=== PATIENT | male | born 1970 | race Caucasian/White ===

== ENCOUNTER 2018-04-04 22:40 | Outpatient (CLI) | payer MEDICAID | END 2018-04-04 22:41 | disposition critical access hospital (66) | LOC: EMS 22:40 | PROVIDERS: ATTEND Surgery | DX: R46.4 Slowness and poor responsiveness (principal) | CPT/HCPCS: A0425; A0427; A0999 ==

== ENCOUNTER 2018-04-04 22:57 | Emergency (ER) | payer MEDICAID ==
--- NOTE | 2018-04-04 23:09 | ED Physician Documentation ---
PD HPI ALTERED MENTAL STATUS - Stated complaint Stated Complaint: OD - History obtained from History obtained from: Patient, Friend (girlfriend (lives with patient)), EMS - History of Present Illness Timing - onset: Unknown Quality / character: Unresponsive Basline status: Alert and oriented X 3, Ambulatory, Independent Treatment ASS[employer]: Narcan Similar symptoms before: Has not had sx before Recently seen: Not recently seen - Additional information Additional information: BIBChristoph, friend called 911 for unresponsiveness. Patient was unconscious and not breathing and friend called 911. Friend is not in ED and thus unable to get specifics from what they witnessed. Medics arrived to find patient unconscious and unresponsive, hypopneic but had pulses and was breathing spontaneously albeit shallow breaths. CPR had apparently been performed by friend prior to EMS arrival. IV established and given 0.4 mg narcan with improvement in level of consciousness and spontaneous respirations, which then significantly improved with a second dose of 0.4mg narcan IV. Patient admits to injecting methamphetamines with heroin tonight; he says he has never used heroin before. Patient's only c/o is midline chest pain Review of Systems Cardiac: reports: Chest pain / pressure. denies: Palpitations Respiratory: reports: Reviewed and negative GI: reports: Reviewed and negative Musculoskeletal: denies: Neck pain, Back pain, Extremity pain Neurologic: reports: Unresponsive (resolved with narcan given IV by medics). denies: Generalized weakness, Focal weakness, Numbness, Headache PD PAST MEDICAL HISTORY - Past Medical History Past Medical History: No - Past Surgical History Past Surgical History: No - Present Medications Home Medications: Ambulatory Orders Medication Instructions Recorded Confirmed Dextroamphetamine/Amphetamine 30 mg PO DAILY 04/04/18 04/04/18 [Adderall 30 mg Tablet] - Allergies Allergies/Adverse Reactions: Allergies Allergy/AdvReac Type Severity Reaction Status Date / Time No Known Drug Allergies Allergy Verified 04/04/18 23:09 - Living Situation Living Situation: reports: With spouse/s.o. (lives with girlfriend) Living Arrangement: reports: At home PD ED PE NORMAL - Vitals Vital signs reviewed: Yes - General General: Alert and oriented X 3, No acute distress, Well developed/nourished, Other (drowsy but awakens to verbal stimulation, repeatedly and rapidly falls asleep during H+P) - HEENT HEENT: Atraumatic, PERRL, EOMI, Moist mucous membranes - Neck Neck: No bony TTP - Cardiac Cardiac: RRR, No murmur, No gallop, No rub - Respiratory Respiratory: No respiratory distress, Clear bilaterally - Abdomen Abdomen: Soft, Non tender - Back Back: No spinal TTP - Derm Derm: Normal color, Warm and dry - Extremities Extremities: No tenderness to palpate, Normal ROM s pain, No edema, Other (LUE antecubital fossa/proximal FA: linear echymosis with firmness and scarring c/w track jael (patient indicates this is where he injected tonight and that he has injected previously at this site (methamphetamines)). nontender, no erythema, fluctuance, or discharge) - Neuro Neuro: Alert and oriented X 3 Eye Opening: To Voice Motor: Obeys Commands Verbal: Oriented GCS Score: 14 PD ED PE EXPANDED - Visual Whole body visual: 1 - tenderness (tenderness and erythema) Results - Vitals Vitals: Vital Signs - 24 hr 04/05/18 04/05/18 06:19 06:45 Heart Rate 66 68 Respiratory 17 16 Rate Blood Pressure 127/85 H 119/92 H O2 Saturation 96 97 Oxygen O2 Source Room air - Labs Labs: Laboratory Tests 04/04/18 04/04/18 04/04/18 00:45 00:45 00:45 WBC 9.1 RBC 4.68 L Hgb 14.7 Hct 43.0 MCV 91.9 MCH 31.5 H MCHC 34.3 RDW 12.5 Plt Count 253 MPV 6.9 L Neut # (Auto) 7.2 H Lymph # (Auto) 1.4 L [place] # (Auto) 0.4 Eos # (Auto) 0.1 Baso # (Auto) 0.1 Absolute Nucleated RBC 0.00 Nucleated RBC % 0.0 Sodium 138 Potassium 3.8 Chloride 105 Carbon Dioxide 26 Anion Gap 7.0 BUN 14 Creatinine 1.2 Estimated GFR (MDRD) 65 L Glucose 130 H Calcium 8.1 L Total Bilirubin 1.3 H AST 26 ALT 24 Alkaline Phosphatase 86 Troponin I < 0.04 Total Protein 6.7 Albumin 3.8 Globulin 2.9 Albumin/Globulin Ratio 1.3 Lipase 25 - Rads (name of study) CT head Radiology: Prelim report reviewed, See rad report chest xray Radiology: Prelim report reviewed, See rad report PD MEDICAL DECISION MAKING - ED course Complexity details: reviewed results, re-evaluated patient, considered differential, d/w patient ED course: episodes of hypoxia early in ED stay which correlated with hypopnea. Patient's chest pain resolved with IV toradol. Patient gradually became more awake and alert during ED stay and was AAOx3 prior to discharge. He was calm and cooperative during ED stay. Departure - Departure Disposition: Home, Self Care Clinical Impression: Heroin overdose Qualifiers: Encounter type: initial encounter Injury intent: accidental or unintentional Qualified Code(s): T40.1X1A - Poisoning by heroin, accidental (unintentional), initial encounter Condition: Good Instructions: ED Narcotic Abuse, ED Overdose Accidental, ED Overdose Opiate Follow-Up: [facility] [Provider Group] [facility] [Provider Group] Discharge Date/Time: 04/05/18 06:47
[2018-04-04] MEDS ORDERED: KETOROLAC 60 MG/2 ML VIAL IVP STA (23:23)
[2018-04-04] MEDS ORDERED: SODIUM CHLORIDE 0.9% 1,000 ML IV STA ×2 (23:23→23:29)
[2018-04-04 23:54] LABS: BASOPHILS # (AUTO) 0.1 10^3/uL (0.0-0.1); BASOPHILS % (AUTO) 0.6 %; EOSINOPHILS # (AUTO) 0.1 10^3/uL (0.0-0.7); EOSINOPHILS % (AUTO) 0.6 %; HGB - HEMOGLOBIN 14.7 g/dL (14.0-18.0); LYMPHOCYTES # (AUTO) 1.4 10^3/uL (1.5-3.5); LYMPHOCYTES % (AUTO) 14.9 %; MEAN CORPUSCULAR HEMOGLOBIN 31.5 pg (27.0-31.0); MEAN CORPUSCULAR HGB CONC 34.3 g/dL (32.0-36.0); MEAN CORPUSCULAR VOLUME 91.9 fL (80.0-94.0); MEAN PLATELET VOLUME 6.9 fL (7.4-11.4); MONOCYTES # (AUTO) 0.4 10^3/uL (0.0-1.0); MONOCYTES % (AUTO) 4.9 %; NEUTROPHILS # (AUTO) 7.2 10^3/uL (1.5-6.6); PLT - PLATELET COUNT 253 10^3/uL (130-450); RED BLOOD COUNT 4.68 10^6/uL (4.70-6.10); RED CELL DISTRIBUTION WIDTH 12.5 % (12.0-15.0); WHITE BLOOD COUNT 9.1 x10^3/uL (4.8-10.8)
[2018-04-05 00:13] LABS: ALBUMIN 3.8 g/dL (3.2-5.5); ALBUMIN/GLOBULIN RATIO 1.3 (1.0-2.2); BILIRUBIN,TOTAL 1.3 mg/dL (0.2-1.0); CALCIUM 8.1 mg/dL (8.5-10.3); CREATININE 1.2 mg/dL (0.6-1.2); TOTAL PROTEIN 6.7 g/dL (6.7-8.2)
--- NOTE | 2018-04-05 00:33 | XRAY Report ---
Reason: chest pain Procedure Date: 04/05/2018 Accession Number: [id number] / [id number] Procedure: XR - Chest 2 View X-Ray CPT Code: 30426 FULL RESULT: EXAM: CHEST RADIOGRAPHY EXAM DATE: 04/05/2018 12:05 AM. CLINICAL HISTORY: Chest pain. COMPARISON: None. TECHNIQUE: 2 views. FINDINGS: Lungs/Pleura: No focal opacities evident. No pleural effusion. No pneumothorax. Normal volumes. Mediastinum: Heart and mediastinal contours are unremarkable. Other: None. IMPRESSION: Normal 2-view chest radiography. [facility]
--- NOTE | 2018-04-05 03:46 | CT Report ---
Reason: AMS, head injury Procedure Date: 04/05/2018 Accession Number: [id number] / [id number] Procedure: CT - Head W/O CPT Code: FULL RESULT: EXAM: CT HEAD EXAM DATE: 04/05/2018 03:38 AM. CLINICAL HISTORY: Altered mental status, head injury. COMPARISON: None. TECHNIQUE: Multiaxial CT images were obtained from the foramen magnum to the vertex. Reformats: Sagittal and coronal. IV contrast: None. In accordance with CT protocol optimization, one or more of the following dose reduction techniques were utilized for this exam: automated exposure control, adjustment of mA and/or KV based on patient size, or use of iterative reconstructive technique. FINDINGS: Parenchyma: No intraparenchymal hemorrhage. No evidence of mass, midline shift, or CT findings of infarction. Lambert-white differentiation is distinct. Extraaxial Spaces: Normal for age. No subdural or epidural collections identified. Ventricles: Normal in size and position. Sinuses and Orbits: Imaged paranasal sinuses, orbits, and mastoids show no significant abnormality with incidental polyps or mucous retention cysts in the right maxillary sinus. Bones: No evidence of fracture or calvarial defect. Other: None. IMPRESSION: Negative head CT. [facility]
[2018-04-05 06:46] VITALS: BP 119/92
== END 2018-04-05 06:47 | disposition home or self-care (01) ==
LOC: EDBD → ED 22:57
DX: T40.1X1A Poisoning by heroin, accidental (unintentional), initial encounter (principal); R07.9 Chest pain, unspecified; R09.02 Hypoxemia
CPT/HCPCS: 36415; 70450; 71046; 80053; 83690; 84484; 85025; 96361; 96374; 99284

== ENCOUNTER 2018-04-20 21:09 | Emergency (ER) | payer MEDICAID ==
[2018-04-20 22:47] VITALS: BP 157/91
== END 2018-04-20 22:54 | disposition left against medical advice (07) ==
LOC: ED 21:09
DX: Z53.21 Procedure and treatment not carried out due to patient leaving prior to being seen by health care provider (principal)